=== PATIENT | female | born 1985 | race Caucasian/White ===

== ENCOUNTER → 2017-06-04 | Outpatient (CLI) | payer OTHER | LOC: FIMAGING 09:39 | PROVIDERS: ATTEND Advanced Practice Midwife | DX: Z34.03 Encounter for supervision of normal first pregnancy, third trimester (principal); Z3A.30 30 weeks gestation of pregnancy ==

== ENCOUNTER 2017-08-12 14:52 | Inpatient (IN) | payer OTHER ==
[2017-08-12] MEDS ORDERED: TERBUTALINE SULFATE 1 MG/ML VIAL ONE (14:57)
[2017-08-12] MEDS ORDERED: AMMONIA AROMATIC 1 EACH AMP IH ONE (14:57)
[2017-08-12] MEDS ORDERED: LIDOCAINE 1% 300 MG/30 ML SDV ONE (14:57)
[2017-08-12] MEDS ORDERED: OLIVE OIL 118 ML BTL ONE (14:57)
[2017-08-12] MEDS ORDERED: MISOPROSTOL 200 MCG TAB ONE (14:58)
[2017-08-12] MEDS ORDERED: OXYTOCIN 10 UNIT/ML VIAL ONE (14:58)
[2017-08-12] MEDS ORDERED: MISOPROSTOL 200 MCG TAB PR PRN (15:01)
[2017-08-12] MEDS ORDERED: IBUPROFEN 600 MG TAB PO PRN (15:01)
[2017-08-12] MEDS ORDERED: OXYTOCIN/RINGERS LACTATE 1,000 ML IV PRN (15:01)
[2017-08-12] MEDS ORDERED: TERBUTALINE SULFATE 1 MG/ML VIAL IV PRN (15:01)
[2017-08-12] MEDS ORDERED: OLIVE OIL 118 ML BTL MISC PRN (15:01)
[2017-08-12] MEDS ORDERED: LIDOCAINE 1% 300 MG/30 ML SDV SC PRN (15:01)
[2017-08-12] MEDS ORDERED: EPSOM SALT 454 GM TP PRN (15:01)
[2017-08-12] MEDS ORDERED: LR 1,000 ML IV PRN (15:01)
[2017-08-12 16:46] LABS: PLATELET COUNT 110 10^3/uL (150-400)
--- NOTE | 2017-08-12 18:05 | PDGENHP ---
History and Physical - Chief Complaint Active labor, 40w2d - History of Present Illness 31 yo G1 at 40w2d by LMP c/w first tri US who called this AM around 1100 reporting regular uncomfortable ctx's that had begun around 0800. Some increased in bloody discharge, but Minor didn't think her water had broken. Reported GBS as negative. Gave options of laboring at home vs presenting immediately and they elected to labor at home for a few hours then presented to L&D. Found to be 8cm dilated on admission, intact, having regular painful ctx's. Baby's HR from the moment we put pt on the monitor had a low baseline in the 90s. Obviously concerning, but the patient assured us that they had had numerous NST's in the office over the past two weeks with this same baseline in the 90s, but with other reassuring findings (and no other concerning findings), and were told that this was just this baby's normal baseline. Overall uncomplicated first - h/o cryo for CIN1. Laboratory Tests 01/08/17 01/08/17 01/17/17 Unknown Unknown 17:30 Hgb Hct Plt Count Gestat Glucose Screen Alpha Fetoprotein Urine Opiates Screen Urine Barbiturates Ur Phencyclidine Scrn Ur Amphetamines Screen U Benzodiazepines Scrn Urine Cocaine Screen U Marijuana (THC) Screen RPR C.trachomatis RNA (TMA) NEGATIVE Hep Bs Antigen NEGATIVE HIV 1&2 Antibody NEGATIVE N.gonorrhoeae RNA (TMA) NEGATIVE HPV High Risk NEGATIVE Rubella IgG Antibody 75.10 Group B Strep DNA Maternal Scrn Comment 01/17/17 01/17/17 03/05/17 17:30 17:30 13:15 Hgb Hct Plt Count Gestat Glucose Screen Alpha Fetoprotein See Comment Urine Opiates Screen NEGATIVE Urine Barbiturates NEGATIVE Ur Phencyclidine Scrn NEGATIVE Ur Amphetamines Screen NEGATIVE U Benzodiazepines Scrn NEGATIVE Urine Cocaine Screen NEGATIVE U Marijuana (THC) Screen NEGATIVE RPR NONREACTIVE C.trachomatis RNA (TMA) Hep Bs Antigen HIV 1&2 Antibody N.gonorrhoeae RNA (TMA) HPV High Risk Rubella IgG Antibody Group B Strep DNA Maternal Scrn Comment See Comments 05/17/17 07/16/17 08/12/17 10:50 17:32 15:10 Hgb 13.8 Hct 39.4 Plt Count 110 L Gestat Glucose Screen 129 Alpha Fetoprotein Urine Opiates Screen Urine Barbiturates Ur Phencyclidine Scrn Ur Amphetamines Screen U Benzodiazepines Scrn Urine Cocaine Screen U Marijuana (THC) Screen RPR C.trachomatis RNA (TMA) Hep Bs Antigen HIV 1&2 Antibody N.gonorrhoeae RNA (TMA) HPV High Risk Rubella IgG Antibody Group B Strep DNA NEGATIVE Maternal Scrn Comment History Information - Allergies/Home Medication List Allergies/Adverse Reactions: No Known Allergies Allergy (Unverified 08/12/17 15:01) Home Medications: Iron 08/12/17 [Last Taken 08/09/17 08:00] Magnesium 08/12/17 [Last Taken 08/09/17 08:00] 08/12/17 [Last Taken Unknown] I have personally reviewed and updated: family history, medical history, social history, surgical history Past Medical History: 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, tobacco abuse, 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 ) - Social History Smoking Status: Former smoker (Quit yrs ago) Tobacco Use: Cigarettes Drug Use: Marijuana (Occ, quite months before ) Review of Systems Review of Systems: ROS: 10pt was reviewed & negative except for what was stated in HPI & below Physical Exam Physical Exam: Constitutional: no apparent distress Respiratory: no respiratory distress Lab Data & Imaging Review 08/12/17 15:10 WBC 12.47 10^3/uL (3.80-9.50) H 08/12/17 15:10 RBC 4.45 10^6/uL (4.18-5.33) 08/12/17 15:10 Hgb 13.8 g/dL (12.6-16.3) 08/12/17 15:10 Hct 39.4 % (38.0-47.0) 08/12/17 15:10 MCV 88.5 fL (81.5-99.8) 08/12/17 15:10 MCH 31.0 pg (27.9-34.1) 08/12/17 15:10 MCHC 35.0 g/dL (32.4-36.7) 08/12/17 15:10 RDW 14.9 % (11.5-15.2) 08/12/17 15:10 Plt Count 110 10^3/uL (150-400) L 08/12/17 15:10 MPV 12.2 fL (8.7-11.7) H 08/12/17 15:10 Neut % (Auto) 93.6 % (39.3-74.2) H 08/12/17 15:10 Lymph % (Auto) 3.4 % (15.0-45.0) L 08/12/17 15:10 [place] % (Auto) 2.4 % (4.5-13.0) L 08/12/17 15:10 Eos % (Auto) 0.0 % (0.6-7.6) L 08/12/17 15:10 Baso % (Auto) 0.1 % (0.3-1.7) L 08/12/17 15:10 Nucleat RBC Rel Count 0.0 % (0.0-0.2) 08/12/17 15:10 Absolute Neuts (auto) 11.67 10^3/uL (1.70-6.50) H 08/12/17 15:10 Absolute Lymphs (auto) 0.43 10^3/uL (1.00-3.00) L 08/12/17 15:10 Absolute Monos (auto) 0.30 10^3/uL (0.30-0.80) 08/12/17 15:10 Absolute Eos (auto) 0.00 10^3/uL (0.03-0.40) L 08/12/17 15:10 Absolute Basos (auto) 0.01 10^3/uL (0.02-0.10) L 08/12/17 15:10 Absolute Nucleated RBC 0.00 10^3/uL (0-0.01) 08/12/17 15:10 Immature Gran % 0.5 % (0.0-1.1) 08/12/17 15:10 Seg Neutrophils % Cancelled 08/12/17 15:10 Band Neutrophils % Cancelled 08/12/17 15:10 Lymphocytes % Cancelled 08/12/17 15:10 Monocytes % Cancelled 08/12/17 15:10 Eosinophils % Cancelled 08/12/17 15:10 Basophils % Cancelled 08/12/17 15:10 Metamyelocytes % Cancelled 08/12/17 15:10 Myelocytes % Cancelled 08/12/17 15:10 Promyelocytes % Cancelled 08/12/17 15:10 Blast Cells % Cancelled 08/12/17 15:10 Megakaryocytes % Cancelled 08/12/17 15:10 Immature Gran # 0.06 10^3/uL (0.00-0.10) 08/12/17 15:10 Absolute Seg Neuts Cancelled 08/12/17 15:10 Absolute Band Neuts Cancelled 08/12/17 15:10 Absolute Lymphocytes Cancelled 08/12/17 15:10 Absolute Monocytes Cancelled 08/12/17 15:10 Absolute Eosinophils Cancelled 08/12/17 15:10 Absolute Basophils Cancelled 08/12/17 15:10 Absolute Metamyelocyte Cancelled 08/12/17 15:10 Absolute Myelocytes Cancelled 08/12/17 15:10 Absolute Promyelocytes Cancelled 08/12/17 15:10 Absolute Plasma Cells Cancelled 08/12/17 15:10 Nucleated RBCs Cancelled 08/12/17 15:10 Differential Comment Cancelled 08/12/17 15:10 RBC/WBC/PLT Morphology Cancelled 08/12/17 15:10 Hypersegmented Neuts Cancelled 08/12/17 15:10 Atypical Lymphocytes Cancelled 08/12/17 15:10 Absolute Blast Cells Cancelled 08/12/17 15:10 Plasma Cells % Cancelled 08/12/17 15:10 Smudge Cells Cancelled 08/12/17 15:10 Toxic Granulation Cancelled 08/12/17 15:10 Toxic Vacuolation Cancelled 08/12/17 15:10 Dohle Bodies Cancelled 08/12/17 15:10 Elana Rods Cancelled 08/12/17 15:10 Platelet Estimate Cancelled 08/12/17 15:10 Clumped Platelets Cancelled 08/12/17 15:10 Large Platelets Cancelled 08/12/17 15:10 Giant Platelets Cancelled 08/12/17 15:10 Bizarre Platelets Cancelled 08/12/17 15:10 Polychromasia Cancelled 08/12/17 15:10 Hypochromasia Cancelled 08/12/17 15:10 Basophilic Stippling Cancelled 08/12/17 15:10 Microcytic Cells Cancelled 08/12/17 15:10 Spherocytes Cancelled 08/12/17 15:10 Pappenheimer Bodies Cancelled 08/12/17 15:10 Sickle Cells Cancelled 08/12/17 15:10 Target Cells Cancelled 08/12/17 15:10 Tear Drop Cells Cancelled 08/12/17 15:10 Oval Macrocytes Cancelled 08/12/17 15:10 Stomatocytes Cancelled 08/12/17 15:10 Vital-[place] Bodies Cancelled 08/12/17 15:10 Echinocytes Cancelled 08/12/17 15:10 Elliptocytes Cancelled 08/12/17 15:10 Acanthocytes (Spur) Cancelled 08/12/17 15:10 Rouleaux Cancelled 08/12/17 15:10 Keratocytes Cancelled 08/12/17 15:10 Schistocytes Cancelled 08/12/17 15:10 Cold Agglutinins Cancelled 08/12/17 15:10 Patient ABO/Rh B POSITIVE 08/12/17 15:10 Antibody Screen NEGATIVE 08/12/17 15:10 Assessment & Plan Assessment: 31 yo G1 presents in active labor at 40w2d, dilated to 8cm, intact. Baby has had a known low baseline FHR in the 90's, confirmed on multiple outpatient NST' s. Low FHR baseline - I had a long talk with Ashutosh and her partner about this FHR tracing. I counseled them that this is indeed a low baseline and even lower than we usually see with some babies that are in the 100s to 110s. There is excellent variability, there's accelerations, no decels, and I got a great acceleration with scalp stim - so I do suspect the baby is not in acute distress. Discussed options of right away versus continuing to labor , and I think its safe to proceed with the later, which is there preference as well. I did counselor aid them in advance that if baby doesn't tolerate pushing well we may need to use vacuum or forceps to assist delivery. - FSE placed on initial exam with AROM small amont of clear fluid. - Maternal HR also 90's - 2 liter bolus up front to see if that would respond to some hydration. - Otherwise expectant mgmt. GBS negative, Rh pos, rubella immune. TOM
--- NOTE | 2017-08-12 19:50 | OBDEL ---
Info Type: Vaginal Presentation at Delivery: Vertex L&D Analgesia/Anesthesia Type: Nitrous GBS+: No Intrapartum Medications: Discontinued Medications Generic Name Dose Route Start Last Admin Trade Name Norma PRN Reason Stop Dose Admin Ibuprofen 600 mg 08/12/17 15:01 08/12/17 19:31 Motrin PO 600 mg ONCE PRN Administration post , pain Indications for Delivery: Spontaneous Labor Vaginal Delivery - Delivery Provider Delivery Physician/CNM: Dann Méndez - Labor and Delivery Onset of Contractions Date: 08/12/17 Onset of Contractions Time: 08:00 Onset of Contractions Type: Spontaneous Rupture of Membranes Type: Artificial Amniotic Fluid Color: Clear Non-surgical Procedures: Amniotomy, FSE Cord Gases: Cord Gases Cord Blood PCO2 53.8 mmHg (37-60) 08/12/17 18:50 Cord Base Excess -9.1 mEq/L (-13.6--3.2) 08/12/17 18:50 Cord ABG pH 7.19 (7.10-7.37) 08/12/17 18:50 Cord VBG pH 7.29 (7.20-7.42) 08/12/17 18:50 Operative Report - Delivery Cord Gases: Cord Gases Cord Blood PCO2 53.8 mmHg (37-60) 08/12/17 18:50 Cord Base Excess -9.1 mEq/L (-13.6--3.2) 08/12/17 18:50 Cord ABG pH 7.19 (7.10-7.37) 08/12/17 18:50 Cord VBG pH 7.29 (7.20-7.42) 08/12/17 18:50 Assissted Delivery Assisted Delivery Type: Vacuum Station: Outlet Pop offs (Total): 0 Pulls (Total): 1 Assisted Delivery Comment: Mom had been pushing for approximately 60 minutes with excellent progress to , +4/5. Baby started to demonstrate late decels taking longer to return to baseline after each push. Recommended outlet vacuum assistance, discussed RBA, and patient verbally consented. Handheld Kiwi applied between contractions at the point of flexion. Care taken that no maternal tissues trapped. With one contraction, the pressure on the device was brought up into the Green and one pull delivered the head in the direct OA position, no pop offs, very gentle pull, very little traction needed at all. Pressure released, vaccum removed and shoulder and body delivered easily. Cord clamped and cut after 60 seconds delayed clamping with baby up on mom's chest. Apgars 8 /8, just off for color. Placenta did take quite a while to delivery, almost 20 minutes. Ultimately came out intact, complete. Partial 3rd degree laceration with sphincter just barely disrupted, a few fibers. Repaired with 0-vicryl figure of eight sutures reinforcing the sphincter itslef - two sutures one superior, one cephalad. Then the rest of the remaining laceration repaired with 3-0 vicryl standard fashion. She did have some extra ongoing bleeding while we were waiting for placenta, so total EBL ultimately was 600cc, but there was never any concern for atony, and never heavy ongoing uncontrolled bleeding - that was almost entirely from her perineal laceration while waiting for placenta. Data NAVID: 08/10/17 Gestational Age: 40 week(s) and 2 day(s) [place] Delivery Date: 08/12/17 Delivery Time: 19:15 Sex of Infant: Male (Riky) Score (1 Min): 8 Score (5 Min): 8 Shoulder Dystocia Dystocia Comment: No dystocia ICD10 Worksheet Patient Problems: Problems Problem Status Onset heart rate/rhythm abnormality, delivered Acute Status post vacuum-assisted vaginal delivery Acute Third degree perineal laceration during delivery Acute - ICD10 Problem Qualifiers (1) Status post vacuum-assisted vaginal delivery (2) heart rate/rhythm abnormality, delivered (3) Third degree perineal laceration during delivery Qualifiers: Third degree perineal laceration subtype: unspecified Qualified Code(s): O70.20 - Third degree perineal laceration during delivery, unspecified
[2017-08-12] MEDS ORDERED: SIMETHICONE 80 MG TAB CHEW PO PRN (19:57)
[2017-08-12] MEDS ORDERED: HYDROCODONE/APAP 5/325 TAB PO PRN (19:57)
[2017-08-12] MEDS ORDERED: HYDROCORTISONE 0.5% CREAM TP PRN (19:57)
[2017-08-12] MEDS ORDERED: DOCUSATE SODIUM 100 MG CAP PO PRN (19:57)
[2017-08-12] MEDS ORDERED: ACETAMINOPHEN 325 MG TAB PO PRN (19:57)
[2017-08-13] MEDS: IBUPROFEN 600 MG TAB PO PRN ×4 (01:20→22:16)
--- NOTE | 2017-08-13 10:53 | OBPP ---
Progress Note Assessment/Plan: Assessment:31 G1 PPD#1 s/p Vac assisted vag delivery - doing well. Mild anemia. Plan: Continue routine postartum cares. Debra Shannon MD, FACOG 08/13/17 10:53 Subjective/ Course: 08/13/17 10:51 Doing well, going well. Min lochia. Ambulating and voiding without difficulty. Objective: 08/13/17 05:05 Patient ABO/Rh B POSITIVE 08/12/17 15:10 Temp Pulse Resp BP Pulse Ox 36.5 C 70 14 109/67 93 08/13/17 08:57 08/13/17 08:57 08/13/17 08:57 08/13/17 08:57 08/13/17 08:57 Gen - pleasant, NAD CV - RRR chest - CTAB abd - soft, NT, fundus firm at u-1 ext - trace edema, no calf tenderness Uterine Position/Fundal Height: Umbilicus -1 Uterine Tone: Firm
[2017-08-13 20:22] VITALS: BP 116/65
[2017-08-14] MEDS: IBUPROFEN 600 MG TAB PO PRN ×2 (04:25→10:30)
[2017-08-14] MEDS ORDERED: FERROUS SULFATE 325 MG TAB PO SCH (09:00)
--- NOTE | 2017-08-14 10:31 | OBGCSDC ---
General Delivery Information - General Info : 1 Para: 1 Abortions: 0 Type: Vaginal L&D Analgesia/Anesthesia Type: Local, Nitrous Admission Date: 08/12/17 Labs: Patient ABO/Rh B POSITIVE 08/12/17 15:10 Hct 33.2 % (38.0-47.0) L 08/13/17 05:05 - Hospital Course : 08/13/17 10:51 Doing well, going well. Min lochia. Ambulating and voiding without difficulty. 08/14/17 10:27 S) Pt doing well, reports min pain and bleeding. she is ambulating and voiding without difficulty. She is . She desires discharge home today. O) VSS, afebrile constitutional: WNWF, A&Ox3 HEENT: normocephalic, atraumatic, supple Heart: RRR, No murmur Chest: CTA-B Abdomen: Soft, nontender Uterus: Firm at U-2 Lochia: Minimal rubra Perineum: Intact, healing well Extremities: Trace edema, and negative Marbella's sign Neuro: Grossly normal A) 31 year-old S/P PPD#2 Rh Neg - received rhogam pp Rubella non-immune - not vaccinated pp due to Rhogam administration ( contraindicated) Anemia - pp hct 33.2 P) Discharge home today Continue Pelvic rest x6wks Discussed danger signs (infection, preeclampsia, depression, heavy bleeding, etc) Rubella vaccination at 6 week pp visit Rx for Ibuprofen and colace, continue PNV and iron daily RTO in 4/6 weeks Vaginal - Delivery Provider Delivery Physician/CNM: Dann Méndez - Diagnosis Labor: Spontaneous Rupture of Membranes Type: Artificial Amniotic Fluid Color: Clear Laceration: 3rd Degree (partial) - Procedures Assisted Delivery Type: Vacuum Non-surgical Procedures: Amniotomy, FSE - Delivery Non-surgical Procedures: Amniotomy, FSE [place] Data NAVID: 08/10/17 Gestational Age: 40 week(s) and 5 day(s) [place] Delivery Date: 08/12/17 Delivery Time: 18:39 Sex of : Male [place] Weight (gm): 3878 g Score (1 Min): 8 Score (5 Min): 8 Discharge Information - Discharge Information Prescriptions: Ibuprofen [Motrin (*)] 600 mg PO Q6HRS PRN #40 tab PRN Reason: Pain, Mild Docusate Sodium [Colace 100 MG (*)] 100 mg PO BID PRN #60 cap PRN Reason: Constipation Condition: Good Instruction/Follow Up: Four Weeks, Six Weeks
== END 2017-08-14 16:23 | disposition home or self-care (01) | DRG 775 ==
LOC: FLD 14:52 → FOB 21:47
PROVIDERS: ADMIT Obstetrics & Gynecology; ATTEND Obstetrics & Gynecology
DX: O76 Abnormality in fetal heart rate and rhythm complicating labor and delivery (principal); O70.20 Third degree perineal laceration during delivery, unspecified; Z37.0 Single live birth; Z3A.40 40 weeks gestation of pregnancy
CPT/HCPCS: J2590; J3105